=== PATIENT | female | born 1970 | race Hispanic/Latino ===

== ENCOUNTER 2018-10-19 10:18 | Outpatient (CLI) | payer BC ==
--- NOTE | 2018-10-19 12:56 | RAD ---
RIGHT ELBOW FOUR VIEWS: HISTORY: Elbow pain. FINDINGS: No evidence of fracture. No evidence of joint effusion. No osseous abnormality. IMPRESSION: No acute findings. POS: [facility]
== END 2018-10-19 10:19 | disposition home or self-care (01) ==
LOC: BURRAD 10:18
PROVIDERS: ATTEND Family Medicine
DX: M25.521 Pain in right elbow (principal)